=== PATIENT | male | born 1960 | race Caucasian/White ===

== ENCOUNTER 2017-03-25 17:36 | Inpatient (IN) | payer OTHER, MEDICAID ==
[~2017-03-25] VITALS: Ht 167.6 cm; Wt 95.7 kg
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
--- NOTE | ~2017-03-25 | OR ---
PATIENT'S NAME: MINH COURTNEY [facility] AGE: 56 Y [address] ROOM: [place] [address] LOCATION: GPCU ADMIT DATE: 03/25/2017 OR/Procedure Report DISCHARGE DATE: 03/26/2017 FAMILY PHYSICIAN: Titus Peterson MD ATTENDING PHYSICIAN: Damian Arora SURGEON: Eric Leyva MD GYNECOLOGY TEACHER: DATE OF PROCEDURE: 03/26/2017 REFERRING PHYSICIAN: Dr. Phan Mckeon. INDICATIONS: Atrial flutter. PROCEDURE PERFORMED: The patient was brought to the preoperative suite in a fasting state, prepped and draped in normal manner. Patches were placed in the AP dimension. Pacemaker interrogation demonstrates atrial flutter. Next, MAC anesthesia was administered through the nurse lead consultant. A total of 150 mg of propofol was administered. Once adequate levels of sedation were obtained, 200 joules synchronized therapy was delivered with prompt episcopalian of normal sinus rhythm. This was confirmed through pacemaker interrogation. CONCLUSION: 1. Successful episcopalian of normal sinus rhythm using DC cardioversion. 2. The patient will continue long-term anticoagulation as well as initiation of antiarrhythmic drug therapy. I would like to thank Dr. Mckeon for the opportunity to participate in the care Mr. Courtney. ERIC LEYVA MD DJM/modl /[id number] d: t: 03/29/17 1426, OPERATIVE SUMMARY
--- NOTE | ~2017-03-25 | DS ---
PATIENT'S NAME: MINH BARBA [facility] AGE: 56 Y [address] ROOM: [address] [place], [place] [address] LOCATION: GPCU ADMIT DATE: 03/25/2017 Discharge Summary DISCHARGE DATE: 03/26/2017 FAMILY PHYSICIAN: Titus Peterson MD ATTENDING PHYSICIAN: Damian Arora FINAL DIAGNOSES: 1. Atrial flutter with rapid ventricular response and 2:1 conduction. 2. Long-term anticoagulation. 3. Valvular heart disease. 4. Essential hypertension. 5. Primary hypothyroidism. 6. Dyslipidemia. PROCEDURES: He had a cardioversion with Dr. Jade on March 26, 2017. HISTORY OF PRESENT ILLNESS: For details of admission, please see the note dictated by Dr. Kolb. In short, the patient presented to the emergency room with complaints of being lightheaded, dizzy, and having shortness of breath. He checked his pulse at home, and it was noted to be 130. He was seen in the emergency room and found to have atrial flutter with a 2:1 block. He was placed on a diltiazem drip and admitted to the floor. LABORATORY DATA: On admission, pH was 7.44, pCO2 was 38, and pO2 was 66. Sodium on admission of 138, potassium of 3.7, chloride of 106, CO2 of 24, BUN of 17, and creatinine of 1. His troponin was less than 0.04. AST is 48, ALT is 46, and magnesium is 2.3. On discharge, sodium was 139, potassium was 4.1, BUN was 19, creatinine was 1, and magnesium was 2.3. On admission, white blood cell count of 7.5, hemoglobin of 14.7, hematocrit of 40.0, and platelet count of 163. Pro-time is 31.3 and INR is 2.95. DIAGNOSTIC STUDIES: Chest x-ray in the emergency room done for chest pain and shortness of breath did not show any evidence of congestive heart failure or pneumonia. HOSPITAL COURSE: The patient was admitted to the floor. The Cardizem drip was continued. Cardiac enzymes were obtained. A Cardiology consult was obtained for possible cardioversion in the morning. The patient was kept n.p.o. Dr. Jade did see the patient. He did undergo a cardioversion with 200 joules synchronized therapy. He did convert to sinus rhythm. He was given a dose of sotalol 80 mg, and started on 80 mg twice daily. His metoprolol dose was adjusted to 50 mg twice daily. The patient felt markedly improved, and from a Cardiology standpoint, the patient could be discharged. The patient did feel PATIENT'S NAME: MINH BARBA [facility] AGE: 56 Y [address] ROOM: [place] [address] [facility] ADMIT DATE: 03/25/2017 Discharge Summary DISCHARGE DATE: 03/26/2017 FAMILY PHYSICIAN: Titus Peterson MD ATTENDING PHYSICIAN: Damian Arora comfortable with going home. DISCHARGE INSTRUCTIONS: The patient is to follow up with Cardiology in two weeks. He can see Dr. Scales. His primary doormaker, Dr. Jade also offered to see him if he needed anything. DISCHARGE MEDICATIONS: 1. Aspirin 81 mg daily. 2. Lexapro 10 mg daily. 3. Levothyroxine 75 mcg daily. 4. Lopressor 50 mg twice daily. 5. Betapace 80 mg twice daily. 6. Coumadin 5 mg on Tuesday, Tuesday, Tuesday, Tuesday, , and Tuesday; 2.5 mg on Tuesday. 7. Tylenol 650 mg every four hours as needed for temperature or pain. I did call the [facility] in [place] to verify that they had sotalol. GABI LIVE MD LAW/modl /[id number] CC: MD Eric Cm MD d: t: 03/28/17 1515, DISCHARGE SUMMARY
[2017-03-25 18:00] LABS: BASOPHIL % 0.3 %; EOSINOPHIL # 0.1 K/uL (0.0-0.5); EOSINOPHIL % 0.8 %; HEMATOCRIT 40.9 % (37.0-53.0); HEMOGLOBIN 14.7 g/dL (12.0-17.0); IMMATURE GRANULOCYTE % 0.4 %; LYMPHOCYTE # 1.4 K/uL (0.8-4.0); LYMPHOCYTE % 18.5 %; MCH 32.3 pg (27.0-34.0); MCHC 35.9 gm/dL (32.0-36.5); MCV 89.9 fl (83.0-98.0); MONOCYTE # 0.6 K/uL (0.0-1.0); MONOCYTE % 8.5 %; MPV 9.6 fl (9.4-12.4); NEUTROPHIL # (ANC) 5.4 K/uL (1.4-9.0); NEUTROPHIL % 71.5 %; NRBC % 0 /100WBC (0-0.00); PLATELET COUNT 163 K/uL (150-450); RBC 4.55 M/uL (4.00-6.00); RDW-CV 12.5 % (11.9-14.6); WBC 7.5 K/uL (4.0-11.0)
[2017-03-25 18:08] LABS: INR - (THERAPEUTIC) 2.95 (0.92-1.07); PROTIME 31.3 SECONDS (9.8-11.4); PTT 43 SECONDS (25-32)
[2017-03-25 18:19] LABS: ALBUMIN 4.5 gm/dL (3.5-5.0); ALK PHOS 104 IU/L (33-138); ALT 46 IU/L (12-78); ANION GAP 11.7 (10.0-19.0); AST 48 IU/L (10-40); BLOOD UREA NITROGEN 17 mg/dL (6-24); CALCIUM 8.5 mg/dL (8.5-10.5); CHLORIDE 106 mMol/L (96-110); CO2 24 mMol/L (22-32); CPK 256 IU/L (35-332); MAGNESIUM 2.3 mg/dL (1.8-2.6); POTASSIUM 3.7 mMol/L (3.7-5.1); SODIUM 138 mMol/L (135-145); TOTAL BILIRUBIN 1.2 mg/dL (0.0-1.5); TOTAL PROTEIN 7.9 g/dL (6.0-8.4)
[2017-03-25 18:31] LABS: BICARBONATE 25.8 mmol/L (18.0-23.0); PCO2 38 mmHg (35-45); PO2 66 mmHg (80-90)
[2017-03-25 20:18] LABS: CPK 231 IU/L (35-332)
[2017-03-25] MEDS ORDERED: COUMADIN ** IA5 MG PO ×2 (21:42→21:54)
[2017-03-25] MEDS ORDERED: LOPRESSOR50 MG PO (21:42)
[2017-03-25] MEDS ORDERED: LEVOTHROID (S150 MCG PO (21:42)
[2017-03-25] MEDS ORDERED: LEXAPRO10 MG PO (21:44)
[2017-03-25] MEDS ORDERED: ASPIRIN (CHILDR81 MG PO (21:44)
[2017-03-25] MEDS ORDERED: ZOCOR20 MG PO (21:44)
[2017-03-25] MEDS ORDERED: TYLENOL325 MG PO (21:55)
[2017-03-26 08:23] LABS: ANION GAP 10.1 (10.0-19.0); CALCIUM 8.5 mg/dL (8.5-10.5); MAGNESIUM 2.3 mg/dL (1.8-2.6); POTASSIUM 4.1 mMol/L (3.7-5.1)
[2017-03-26] MEDS ORDERED: SOTALOL80 MG PO (16:43)
== END 2017-03-26 17:15 | disposition disaster alternative care site (69) | DRG 310 ==
LOC: GMED 17:36 → GPCU 21:08
PROVIDERS: Emergency Medicine; Internal Medicine; ADMIT Internal Medicine
PROC: 5A2204Z Restoration of Cardiac Rhythm, Single (ICD-10-PCS; principal; 2017-03-26)
DX: I48.92 Unspecified atrial flutter (principal); Z95.2 Presence of prosthetic heart valve; I10 Essential (primary) hypertension; I48.0 Paroxysmal atrial fibrillation; Z79.01 Long term (current) use of anticoagulants; E78.5 Hyperlipidemia, unspecified; N40.0 Benign prostatic hyperplasia without lower urinary tract symptoms; Z79.82 Long term (current) use of aspirin; Z95.0 Presence of cardiac pacemaker; E03.9 Hypothyroidism, unspecified; F32.9 Major depressive disorder, single episode, unspecified
CPT/HCPCS: A9270; J7030; J7040